=== PATIENT | female | born 1980 ===

== ENCOUNTER 2018-06-12 11:27 | Inpatient (IN) | payer OTHER ==
[2018-06-12 12:29] LABS: SQUAMOUS EPITHIAL 4 /hpf (0-5); URINE BACTERIA RARE (<OCC); URINE BILIRUBIN NEGATIVE (NEGATIVE); URINE BLOOD 3+ (NEGATIVE); URINE CLARITY Hazy (Clear); URINE COLOR Red (YELLOW); URINE GLUCOSE (UA) NORMAL (Normal); URINE LEUKOCYTE ESTERASE 2+ Leu/uL (Negative); URINE PROTEIN 2+ mg/dL (NEGATIVE); URINE UROBILINOGEN NORMAL mg/dL (0.2-1.0)
[2018-06-12 12:34] LABS: HCG,QUALITATIVE URINE NEGATIVE (NEGATIVE)
--- NOTE | 2018-06-12 12:58 | C.PDOC ---
History Of Present Illness <Delores Mendoza - Last Filed: 06/12/18 18:43> <Laney Pereztraci Pope - Last Filed: 06/12/18 19:21> 38 y/o female present to ED with c/o diffuse abdominal pain for 3 days associated with constipation. Patient states her last bowel was 3 days ago after taking dose of dulcolax given by PMD. Patient was sent to have outpatient ultrasound today but does not have results yet, states pain was severe 08/08 came to ED for evaluation. Patient denies fever, vomiting, diarrhea or any other complaints at this time. LMP now (Elissa Perez) <Delores Mendoza - Last Filed: 06/12/18 18:43> History Per: Patient History/Exam Limitations: no limitations Onset/Duration Of Symptoms: Days Current Symptoms Are (Timing): Still Present Location Of Pain/Discomfort: Diffuse <ChrisLaneyElissa Toshia - Last Filed: 06/12/18 19:21> Time Seen by Provider: 06/12/18 11:50 Chief Complaint (Nursing): Abdominal Pain Past Medical History Reviewed: Historical Data, Nursing Documentation, Vital Signs - Medical History PMH: No Chronic Diseases Surgical History: No Surg Hx Family History: States: No Known Family Hx - Social History Hx Alcohol Use: No Hx Substance Use: No - Immunization History Hx Tetanus Toxoid Vaccination: No Hx Influenza Vaccination: No Hx Pneumococcal Vaccination: No <ChrisLaneyElissa C - Last Filed: 06/12/18 19:21> Vital Signs: Last Vital Signs Temp 99.5 F 06/12/18 18:00 Pulse 82 06/12/18 18:00 Resp 18 06/12/18 18:00 BP 123/82 06/12/18 18:00 Pulse Ox 100 06/12/18 18:34 Review Of Systems Constitutional: Negative for: Fever, Chills Gastrointestinal: Positive for: Abdominal Pain, Constipation. Negative for: Nausea, Vomiting, Diarrhea, Hematochezia Skin: Negative for: Rash Neurological: Negative for: Weakness, Numbness <Elissa Perez - Last Filed: 06/12/18 19:21> Physical Exam - Physical Exam Appears: Non-toxic, No Acute Distress Skin: Warm, Dry, No Rash Head: Atraumatic, Normacephalic Eye(s): bilateral: Normal Inspection Oral Mucosa: Moist Neck: Normal ROM, Supple Cardiovascular: Rhythm Regular Respiratory: Normal Breath Sounds, No Rales, No Rhonchi, No Wheezing Gastrointestinal/Abdominal: Soft, No Tenderness, No Guarding, No Rebound Back: No CVA Tenderness Extremity: Normal ROM, Capillary Refill (<2 seconds) Neurological/Psych: Oriented x3, Normal Speech, Normal Cognition <Elissa Perez - Last Filed: 06/12/18 19:21> ED Course And Treatment - Laboratory Results Result Diagrams: 06/12/18 14:19 06/12/18 14:19 <Delores Mendoza - Last Filed: 06/12/18 18:43> - Laboratory Results Result Diagrams: 06/12/18 14:19 06/12/18 14:19 O2 Sat by Pulse Oximetry: 100 (RA) Pulse Ox Interpretation: Normal <Elissa Perez - Last Filed: 06/12/18 19:21> Progress <Delores Mendoza - Last Filed: 06/12/18 18:43> <Elissa Perez - Last Filed: 06/12/18 19:21> - Re-Evaluation Re-evaluation Note: 06/12/18 18:43 D/W DR LYNN AWARE OF ER FINDINGS, ADMIT TO HIS SERVICE TO Sara PERRY (Delores Mendoza) Critical Care Time - Critical Care Note Total Time (in mins): 35 Documented critical care: time excludes all time spent performing seperately billable procedures. <Elissa Perez - Last Filed: 06/12/18 19:21> - Critical Care Note Comments: see MDM (Elissa Perez) Medical Decision Making <Delores Mendoza - Last Filed: 06/12/18 18:43> <Elissa Perez - Last Filed: 06/12/18 19:21> Medical Decision Making: Patient has no abdominal tenderness, obstructive series ordered. Patient had enema and still no bowel movement. CT scan ordered to r/o obstruction. Blood cultures and Zosyn IV ordered. The case was discussed with Dr. Lynn who agrees to admit the patient. (Elissa Perez) Disposition <Delores Mendoza - Last Filed: 06/12/18 18:43> - Disposition Disposition Time: 18:34 <Elissa Perez - Last Filed: 06/12/18 19:21> - Disposition Disposition: HOSPITALIZED Condition: STABLE Forms: [facility] ([place]) - Clinical Impression Clinical Impression: Ruptured appendicitis <Delores Mendoza - Last Filed: 06/12/18 18:43> - PA / FASHION BUYER / Resident Statement MD/DO has reviewed & agrees with the documentation as recorded. - Scribe Statement The provider has reviewed the documentation as recorded by the Scribe <Elissa Perez - Last Filed: 06/12/18 19:21> - Scribe Statement Alex Peña All medical record entries made by the Scribe were at my direction and personally dictated by me. I have reviewed the chart and agree that the record accurately reflects my personal performance of the history, physical exam, medical decision making, and the department course for this patient. I have also personally directed, reviewed, and agree with the discharge instructions and disposition. (Elissa Perez)
--- NOTE | 2018-06-12 13:26 | RAD ---
Date of service: 06/12/2018 PROCEDURE: Radiographs of the chest and abdomen (obstructive series) HISTORY: constipation COMPARISON: No prior. TECHNIQUE: AP radiograph of the chest, with upright and supine radiographs of the abdomen. FINDINGS: CHEST: Lungs: Clear. Cardiovascular: Normal size heart. No pulmonary vascular congestion. Pleura: No pleural fluid. No pneumothorax. Other findings: None. ABDOMEN AND PELVIS: Bowel: There is gas seen within the splenic flexure an also apparently this left upper quadrant small bowel loops here is well. Few nonspecific air-fluid levels small bowel loops in left upper quadrant are noted. There is paucity of gas in the mid and distal small bowel and colonic loops. . No marked stool retention appreciated Free air: None. Bones: Unremarkable. Other findings: None. IMPRESSION: No pulmonary infiltrate. No free air. Nonspecific bowel gas pattern. No complete small bowel obstruction seen. A partial Renee 18 minutes intermittent proximal small bowel obstruction not excluded. An enteritis is also a consideration. Clinical correlation and follow-up is advised .
[2018-06-12] MEDS ORDERED: Iohexol 240 (50 ml) PO STA (14:04)
[2018-06-12 14:25] LABS: BASO # 0.1 K/uL (0.0-0.2); BASO % 0.5 % (0.0-2.0); EOS % 0.2 % (0.0-4.0); HEMOGLOBIN 12.8 g/dL (11.0-16.0); LYMPH # 1.6 K/uL (1.0-4.3); LYMPH % 11.8 % (20.0-40.0); MEAN CELL VOLUME 81.1 fL (81.0-99.0); MEAN CORPUSCULAR HGB CONC 33.3 g/dL (33.0-37.0); MEAN PLATELET VOLUME 8.6 fL (7.2-11.7); MONO # 1.1 K/uL (0.0-0.8); MONO % 8.7 % (0.0-10.0); NEUT # 10.4 K/uL (1.8-7.0); NEUT % 78.8 % (50.0-75.0); NRBC % 0.1 % (0.0-2.0); RBC 4.74 Mil/uL (3.80-5.20); RED CELL DISTRIBUTION WIDTH 15.4 % (11.5-14.5); WHITE BLOOD COUNT 13.2 K/uL (4.8-10.8)
[2018-06-12 14:36] LABS: ALB/GLOB RATIO 1.1 (1.0-2.1); ALBUMIN 4.5 g/dL (3.5-5.0); ALT/SGPT 44 U/L (9-52); AST/SGOT 30 U/L (14-36); BLOOD UREA NITROGEN 8 mg/dL (7-17); CALCIUM 9.6 mg/dl (8.6-10.4); GFR AFRICAN-AMERICAN > 60; GFR NON-AFRICAN AMERICAN > 60; LIPASE 57 U/L (23-300)
[2018-06-12] MEDS ORDERED: Iohexol 240 (50 ml) ONE (14:40)
[2018-06-12] MEDS ORDERED: Iodixanol 320 MG/ML 100 ML BOTTLE IV ONE (16:46)
--- NOTE | 2018-06-12 17:34 | CT ---
Date of service: 06/12/2018 PROCEDURE: CT Abdomen and Pelvis with contrast HISTORY: diffuse abd pain, obstipation, r/o obstruction COMPARISON: None. TECHNIQUE: Contrast dose: 100 mL Visipaque 320. Axial and reformatted coronal and sagittal CT images of the abdomen and pelvis were obtained after IV and oral contrast administration. Radiation dose: Total exam DLP = 636.93 mGy-cm. This CT exam was performed using one or more of the following dose reduction techniques: Automated exposure control, adjustment of the mA and/or kV according to patient size, and/or use of iterative reconstruction technique. FINDINGS: LOWER THORAX: Unremarkable. LIVER: Unremarkable. No gross lesion or ductal dilatation. GALLBLADDER AND BILE DUCTS: No evidence of acute cholecystitis or biliary obstruction. PANCREAS: No evidence of pancreatitis. The main pancreatic duct is not dilated. SPLEEN: Unremarkable. ADRENALS: Unremarkable. No mass. KIDNEYS AND URETERS: Unremarkable. No hydronephrosis. No solid mass. VASCULATURE: Unremarkable. No aortic aneurysm. BOWEL: Mildly dilated ascending transverse and descending colon contains fluid density stool. There is no evidence of high-grade bowel obstruction. There are air-fluid levels seen in the large bowel. APPENDIX: The appendix is not visualized. There is a phlegmon and inflammatory changes adjacent to the sigmoid may represent contained rupture appendicitis. Correlate clinically. There are adjacent mildly enlarged mesenteric lymph nodes at the right lower abdomen. PERITONEUM: Unremarkable. No free fluid. No free air. LYMPH NODES: Unremarkable. No enlarged lymph nodes. BLADDER: Unremarkable. REPRODUCTIVE: Unremarkable. BONES: No acute fracture. OTHER FINDINGS: None. IMPRESSION: No evidence of high-grade bowel obstruction. Mildly dilated large bowel loop contains fluid density stool and contains multiple air-fluid levels. Suspicious for phlegmon and inflammatory changes adjacent to the cecum may represent contained rupture appendicitis. Please correlate clinically. Adjacent mildly enlarged mesenteric lymph nodes at the right lower abdomen.
[2018-06-12] MEDS ORDERED: Piperacillin/Tazobact 3.375 gm 100 ML IV STA (18:33)
[2018-06-12] MEDS ORDERED: Sodium Chloride 0.9% 1,000 ML IV ONE (18:42)
[2018-06-12] MEDS ORDERED: Sodium Chloride 0.9% 250 ML IV ONE ×2 (18:42→19:14)
[2018-06-12 18:43] LABS: VENOUS BLOOD GAS PCO2 47 mmHg (40-60); VENOUS BLOOD GAS PO2 17 mm/Hg (30-55); VENOUS BLOOD PH 7.38 (7.32-7.43)
[2018-06-12] MEDS ORDERED: Sodium Chloride 0.9% 1,000 ML ONE (19:14)
[2018-06-12] MEDS ORDERED: Piperacillin/Tazobact 3.375 gm 100 ML IVPB ONE (19:19)
[2018-06-12] MEDS: Dextrose 5%/0.45% NS 1,000 ML IV SCH (21:05)
[2018-06-13] MEDS: metroNIDAZOLE IV 500 mg/100 ml 500 MG/100 ML BAG IVPB SCH ×4 (00:45→23:01)
[2018-06-13] MEDS: Dextrose 5%/0.45% NS 1,000 ML IV SCH ×4 (07:15→21:48)
[2018-06-13 07:58] LABS: BASO % 0.3 % (0.0-2.0); EOS % 0.3 % (0.0-4.0); HEMOGLOBIN 12.2 g/dL (11.0-16.0); LYMPH # 1.2 K/uL (1.0-4.3); LYMPH % 9.9 % (20.0-40.0); MEAN CELL VOLUME 81.3 fL (81.0-99.0); MEAN CORPUSCULAR HEMOGLOBIN 26.9 pg (27.0-31.0); MEAN CORPUSCULAR HGB CONC 33.1 g/dL (33.0-37.0); MEAN PLATELET VOLUME 8.6 fL (7.2-11.7); MONO % 8.6 % (0.0-10.0); NEUT # 9.5 K/uL (1.8-7.0); NEUT % 80.9 % (50.0-75.0); PLATELET COUNT 288 K/uL (130-400); RBC 4.52 Mil/uL (3.80-5.20); RED CELL DISTRIBUTION WIDTH 15.5 % (11.5-14.5); WHITE BLOOD COUNT 11.7 K/uL (4.8-10.8)
[2018-06-13 08:09] LABS: ALBUMIN 3.6 g/dL (3.5-5.0); ALT/SGPT 27 U/L (9-52); AST/SGOT 18 U/L (14-36); BLOOD UREA NITROGEN 6 mg/dL (7-17); CALCIUM 8.5 mg/dl (8.6-10.4); GFR AFRICAN-AMERICAN > 60; GFR NON-AFRICAN AMERICAN > 60
[2018-06-13 09:06] LABS: ANISOCYTOSIS SLIGHT; BANDS 3 % (0-2); LYMPHOCYTE 10 % (20-40); MONOCYTE 6 % (0-10); NEUTROPHIL 81 % (50-75); PLATELET ESTIMATE NORMAL (NORMAL); POIKILOCYTOSIS SLIGHT; TOTAL CELLS COUNTED 100
[2018-06-13] MEDS ORDERED: Propofol 10 mg/ml Inj (20 ML) ONE (12:42)
[2018-06-13] MEDS ORDERED: Midazolam 2 MG/2 ML VIAL ONE (12:42)
[2018-06-13 13:13] LABS: INR 1.3; PROTHROMBIN TIME 13.7 SECONDS (9.7-12.2)
[2018-06-13] MEDS ORDERED: Bacitracin Ointment 30 GM TUBE ONE (14:10)
[2018-06-13] MEDS ORDERED: Neostigmine Methylsulfate 3mg/3ml Syringe IV ONE (14:18)
[2018-06-13] MEDS ORDERED: Lactated Ringer's 1,000 ML IV SCH (14:30)
[2018-06-13] MEDS ORDERED: Dextrose 5%/0.45% NS 1,000 ML IV ONE (16:15)
--- NOTE | 2018-06-13 22:34 | OP ---
Copied To: Zane Beckman MD Attending MD: Zane Beckman MD PROCEDURE DATE: 06/13/2018 PREOPERATIVE DIAGNOSIS: Perforated appendicitis. POSTOPERATIVE DIAGNOSIS: Perforated appendicitis with intraperitoneal abscess. PROCEDURE PERFORMED: Laparotomy, appendectomy, drainage of intraperitoneal abscess, extensive lysis of adhesions with repair of serosal injuries of both the cecum and small bowel. SURGEON: Zane Beckman MD ANESTHESIA General endotracheal. BLOOD LOSS: 50 mL. POSTOPERATIVE CONDITION: Stable. INDICATIONS FOR SURGERY: This is a 38-year-old female who presents with a 3-day history of right lower quadrant pain and fever. CAT scan revealed a periappendiceal abscess perforation. She is taken to the OR now for open appendectomy. GROSS FINDINGS: There was a walled off abscess in the right lower quadrant. There was a cecal phlegmon containing appendix abscess and multiple adhesions of small and large bowel. The right lower quadrant incision had to be widened to gain exposure in order to complete the operation safely. DESCRIPTION OF PROCEDURE: The patient was taken to the operating room, general anesthesia was administered. The abdomen was prepped and draped. The abdomen was entered through a transverse muscle splitting incision in the lower quadrant. Phlegmon was found and it was felt that no more exposure would be needed to do the operation safely so the incision was extended medially and laterally, and the muscle layers were divided using the Bovie. Once the opening had been widened, the cecum was mobilized into the wound, and the phlegmon at the base of the cecum was carefully dissected free. The abscess cavity was entered and pus was drained and cultured. The appendix was meticulously dissected off its adhesions with removal of small and large bowel adhesions. Serosal tears were repaired with silk. The appendix had been carefully removed from its adherence to the cecal wall. The base space was divided using a TA-30 stapler. A bleeding right colic blood vessel was repaired. The wound was irrigated with 5 liters of warm saline solution after the bowel was carefully inspected and a rent in the cecal mesentery was repaired with chromic. The abdominal wall was closed in layers with #1 Monocryl. The subcutaneous tissue was flushed with Irrisept solution and closed loosely with Monocryl and skin clips. The patient tolerated the procedure well. Returned to recovery room in stable condition. Zane Beckman MD
--- NOTE | 2018-06-13 23:12 | CP.PCM.HP ---
Past Patient History - Past Medical History & Family History Past Medical History?: Yes - Past Social History Smoking Status: Never Smoked - MUSCULOSKELETAL/RHEUMATOLOGICAL Hx Falls: No - GASTROINTESTINAL Hx Gastrointestinal Disorders: Yes Hx Constipation: Yes - PSYCHIATRIC Hx Substance Use: No - SURGICAL HISTORY Hx Surgeries: Yes Hx Section: Yes - ANESTHESIA Hx Anesthesia: Yes Hx Anesthesia Reactions: No Meds Allergies/Adverse Reactions: Allergies Allergy/AdvReac Type Severity Reaction Status Date / Time No Known Allergies Allergy Verified 06/12/18 11:30 Results - Vital Signs Recent Vital Signs: Last Vital Signs Temp 97.6 F 06/13/18 16:30 Pulse 80 06/13/18 16:30 Resp 22 06/13/18 16:30 BP 97/52 L 06/13/18 16:30 Pulse Ox 100 06/13/18 16:30 - Labs Result Diagrams: 06/13/18 07:47 06/13/18 07:47 Labs: Laboratory Results - last 24 hr 06/13/18 06/13/18 06/13/18 07:47 07:47 12:23 WBC 11.7 H RBC 4.52 Hgb 12.2 Hct 36.8 MCV 81.3 MCH 26.9 L MCHC 33.1 RDW 15.5 H Plt Count 288 MPV 8.6 Neut % (Auto) 80.9 H Lymph % (Auto) 9.9 L [place] % (Auto) 8.6 Eos % (Auto) 0.3 Baso % (Auto) 0.3 Neut # (Auto) 9.5 H Lymph # (Auto) 1.2 [place] # (Auto) 1.0 H Eos # (Auto) 0.0 Baso # (Auto) 0.0 Neutrophils % (Manual) 81 H Band Neutrophils % 3 H Lymphocytes % (Manual) 10 L Monocytes % (Manual) 6 Platelet Estimate Normal Poikilocytosis (manual Slight Anisocytosis (manual) Slight PT 13.7 H INR 1.3 APTT 34 Sodium 142 Potassium 3.7 Chloride 105 Carbon Dioxide 28 Anion Gap 13 BUN 6 L Creatinine 0.6 L Est GFR ( Amer) > 60 Est GFR (Non-Af Amer) > 60 Random Glucose 124 H Calcium 8.5 L Total Bilirubin 0.5 AST 18 ALT 27 Alkaline Phosphatase 69 Total Protein 7.1 Albumin 3.6 Globulin 3.5 Albumin/Globulin Ratio 1.0
[2018-06-14] MEDS: Dextrose 5%/0.45% NS 1,000 ML IV SCH ×6 (06:09→23:48)
[2018-06-14] MEDS: metroNIDAZOLE IV 500 mg/100 ml 500 MG/100 ML BAG IVPB SCH ×3 (06:45→23:45)
--- NOTE | 2018-06-14 08:13 | PN ---
Copied To: Terrell Samayoa MD Attending MD: Terrell Samayoa MD DATE: 06/13/2018 CHIEF COMPLAINT: Right and left quadrant abdominal pain. SUBJECTIVE: This is 38-year-old female with no significant past medical history. Starting last Monday, she developed mild right lower quadrant pain. She was seen by her PMD. The patient was advised an ultrasound of the abdomen. The patient was advised to report in case if she does not improve. The patient's pain got worse in the next day. Then, it continued to get worse and on Monday morning, she came to emergency room. She was hospitalized here tiredness, generalized malaise, fatigue, and nausea. No vomiting. No fever. No diarrhea. No constipation. She denies any polyuria or polydipsia. She denies any dysuria, hematuria, or pyuria. She denies any diarrhea. She denies any rectal bleeding, hematemesis, . She denies any history of trauma or fall to the abdomen. ALLERGIES: UNKNOWN ALLERGIES. CURRENT MEDICATIONS: None. PAST MEDICAL HISTORY: Nothing significant. SOCIAL HISTORY: Nonsmoker, non EtOH abuser. PHYSICAL EXAMINATION: GENERAL: A young female, postop. She has a dressing in the right lower quadrant. She is in the bed. She denies any shortness of breath. VITAL SIGNS: Blood pressure 97/52, pulse 80, respiratory rate 22, and temperature 97.6. SKIN: Dry. HEENT: Atraumatic, normocephalic. Negative pallor. Negative jaundice. Extraocular movements are intact. NECK: Supple. No JVD. No lymph node. No thyromegaly. No carotid bruits. CHEST WALL: Bilateral symmetrical expansion. LUNGS: Bilaterally clear. No rales. No rhonchi. CARDIOVASCULAR SYSTEM: S1 and S2 regular. No thrills. . ABDOMEN: Soft and nontender. Bowel sounds positive. Unable to evaluate right lower quadrant dressing. RECTAL AND PELVIC: Unable to do because of the patient's positioning. EXTREMITIES: No clubbing, cyanosis, or edema. ASSESSMENT: 1. phlegmon in right lower quadrant due to ruptured appendix, status post surgery. 2. Dehydration. PLAN: Admit. Detailed orders written. Seen and examined. Terrell Samayoa MD [facility] # [id number]
--- NOTE | 2018-06-14 23:23 | CP.PCM.PN ---
Objective - Vital Signs/Intake and Output Vital Signs (last 24 hours): Temp Pulse Resp BP Pulse Ox 100.6 F H 90 18 121/73 98 06/14/18 21:17 06/14/18 21:15 06/14/18 21:15 06/14/18 21:15 06/14/18 21:15 Intake and Output: 06/14/18 06/15/18 18:59 06:59 Intake Total 1000 Output Total 30 Balance 970 - Medications Medications: Current Medications Acetaminophen (Tylenol 325mg Tab) 650 mg PO Q6 PRN PRN Reason: Fever >100.4 F Last Admin: 06/14/18 21:17 Dose: 650 mg Dextrose/Sodium Chloride (Dextrose 5%/0.45% Ns 1000 Ml) 1,000 mls @ 125 mls/hr IV .[facility]8H [facility] Last Admin: 06/14/18 20:21 Dose: Not Given Metronidazole (Flagyl) 500 mg in 100 mls @ 100 mls/hr IVPB Q8H ELIAZAR PRN Reason: Protocol Last Admin: 06/14/18 16:00 Dose: 100 mls/hr Ceftriaxone Sodium 1 gm/ (Sodium Chloride) 100 mls @ 100 mls/hr IVPB Q24H ELIAZAR PRN Reason: Protocol Last Admin: 06/14/18 00:17 Dose: 100 mls/hr Morphine Sulfate (Morphine) 2 mg IVP Q4 PRN PRN Reason: Pain, moderate (4-7) Last Admin: 06/14/18 22:20 Dose: 2 mg Ondansetron HCl (Zofran Inj) 4 mg IVP Q6 PRN PRN Reason: Nausea/Vomiting - Labs Labs: 06/13/18 07:47 06/13/18 07:47 PT 13.7 SECONDS (9.7-12.2) H 06/13/18 12:23 INR 1.3 06/13/18 12:23 APTT 34 SECONDS (21-34) 06/13/18 12:23
[2018-06-15] MEDS: Dextrose 5%/0.45% NS 1,000 ML IV SCH (03:54)
--- NOTE | 2018-06-15 05:26 | PN ---
Copied To: Terrell Samayoa MD Attending MD: Terrell Samayoa MD DATE: 06/14/2018 SUBJECTIVE: The patient has low-grade fever. She feels better. She is on diet. No nausea or vomiting. PHYSICAL EXAMINATION: VITAL SIGNS: Blood pressure 121/73, pulse 90, respiratory rate 18, and temperature 100.8. LUNGS: Clear. CVS: S1 and S2 regular. ABDOMEN: Soft. ASSESSMENT: 1. Status post incision and drainage of right appendicular phlegmon. 2. Dehydration. PLAN: Continue postop care. Monitor the patient. Terrell Samayoa MD
[2018-06-15 06:49] LABS: BASO % 0.3 % (0.0-2.0); EOS # 0.1 K/uL (0.0-0.7); EOS % 0.8 % (0.0-4.0); HEMOGLOBIN 10.2 g/dL (11.0-16.0); LYMPH # 0.7 K/uL (1.0-4.3); MEAN CELL VOLUME 81.2 fL (81.0-99.0); MEAN CORPUSCULAR HEMOGLOBIN 26.7 pg (27.0-31.0); MEAN CORPUSCULAR HGB CONC 32.9 g/dL (33.0-37.0); MEAN PLATELET VOLUME 7.8 fL (7.2-11.7); MONO # 0.9 K/uL (0.0-0.8); MONO % 10.8 % (0.0-10.0); NEUT # 6.5 K/uL (1.8-7.0); NEUT % 79.1 % (50.0-75.0); PLATELET COUNT 273 K/uL (130-400); RBC 3.81 Mil/uL (3.80-5.20); RED CELL DISTRIBUTION WIDTH 15.4 % (11.5-14.5); WHITE BLOOD COUNT 8.3 K/uL (4.8-10.8)
[2018-06-15] MEDS: metroNIDAZOLE IV 500 mg/100 ml 500 MG/100 ML BAG IVPB SCH ×3 (06:51→23:45)
[2018-06-15 08:06] LABS: BLOOD UREA NITROGEN 4 mg/dL (7-17); CALCIUM 7.9 mg/dl (8.6-10.4); GFR AFRICAN-AMERICAN > 60; GFR NON-AFRICAN AMERICAN > 60
[2018-06-15 08:27] LABS: ANISOCYTOSIS SLIGHT; BANDS 7 % (0-2); BASOPHIL 1 % (0-2); HYPOCHROMIC SLIGHT; LYMPHOCYTE 8 % (20-40); MONOCYTE 11 % (0-10); NEUTROPHIL 73 % (50-75); PLATELET ESTIMATE NORMAL (NORMAL); POIKILOCYTOSIS SLIGHT; POLYCHROMIC SLIGHT; TOTAL CELLS COUNTED 100
--- NOTE | 2018-06-15 23:21 | CP.PCM.PN ---
Objective - Vital Signs/Intake and Output Vital Signs (last 24 hours): Temp Pulse Resp BP Pulse Ox 98.1 F 96 H 20 118/79 98 06/15/18 15:00 06/15/18 15:00 06/15/18 15:00 06/15/18 15:00 06/15/18 15:00 - Medications Medications: Current Medications Acetaminophen (Tylenol 325mg Tab) 650 mg PO Q6 PRN PRN Reason: Fever >100.4 F Last Admin: 06/14/18 21:17 Dose: 650 mg Metronidazole (Flagyl) 500 mg in 100 mls @ 100 mls/hr IVPB Q8H ELIAZAR PRN Reason: Protocol Last Admin: 06/15/18 17:51 Dose: 100 mls/hr Ceftriaxone Sodium 1 gm/ (Sodium Chloride) 100 mls @ 100 mls/hr IVPB Q24H ELIAZAR PRN Reason: Protocol Last Admin: 06/14/18 23:46 Dose: 100 mls/hr Morphine Sulfate (Morphine) 2 mg IVP Q4 PRN PRN Reason: Pain, moderate (4-7) Last Admin: 06/15/18 16:28 Dose: 2 mg Ondansetron HCl (Zofran Inj) 4 mg IVP Q6 PRN PRN Reason: Nausea/Vomiting - Labs Labs: 06/15/18 06:45 06/15/18 06:45 PT 13.7 SECONDS (9.7-12.2) H 06/13/18 12:23 INR 1.3 06/13/18 12:23 APTT 34 SECONDS (21-34) 06/13/18 12:23
[2018-06-16 04:35] VITALS: O2SAT 98
--- NOTE | 2018-06-16 05:03 | PN ---
Copied To: Terrell Samayoa MD Attending MD: Terrell Samayoa MD DATE: 06/15/2018 SUBJECTIVE: The patient is feeling better, afebrile. No shortness of breath. No nausea or vomiting. She is tolerating diet. PHYSICAL EXAMINATION: VITAL SIGNS: Blood pressure 100/70, pulse 80, respiratory rate 15, and temperature 98.2. LUNGS: Clear. No rales. No rhonchi. CVS: S1 and S2 regular. ABDOMEN: Soft. ASSESSMENT: 1. Phlegmon appendicular abscess, status post surgery. 2. Dehydration. PLAN: Continue postop care. Monitor the patient. Terrell Samayoa MD
[2018-06-16 08:02] VITALS: BP 124/86; PULSE 87; RESP 18; TEMP 99.6
--- NOTE | 2018-06-16 21:56 | CP.PCM.DIS ---
Provider - Provider Date of Admission: 06/12/18 18:57 Attending physician: Terrell Samayoa MD Hospital Course - Lab Results Lab Results: Micro Results 06/12/18 14:58 Blood Blood Culture - Preliminary NO GROWTH AFTER 3 DAYS 06/12/18 14:58 Blood Blood Culture - Preliminary NO GROWTH AFTER 3 DAYS 06/13/18 13:59 Abdomen Gram Stain - Final 06/13/18 13:59 Abdomen Wound Culture - Preliminary No growth. 06/13/18 17:01 Abdomen Gram Stain - Final 06/13/18 17:01 Abdomen Wound Culture - Preliminary No growth. Most Recent Lab Values WBC 8.3 K/uL (4.8-10.8) 06/15/18 06:45 RBC 3.81 Mil/uL (3.80-5.20) 06/15/18 06:45 Hgb 10.2 g/dL (11.0-16.0) L D 06/15/18 06:45 Hct 31.0 % (34.0-47.0) L 06/15/18 06:45 MCV 81.2 fL (81.0-99.0) 06/15/18 06:45 MCH 26.7 pg (27.0-31.0) L 06/15/18 06:45 MCHC 32.9 g/dL (33.0-37.0) L 06/15/18 06:45 RDW 15.4 % (11.5-14.5) H 06/15/18 06:45 Plt Count 273 K/uL (130-400) 06/15/18 06:45 MPV 7.8 fL (7.2-11.7) 06/15/18 06:45 Neut % (Auto) 79.1 % (50.0-75.0) H 06/15/18 06:45 Lymph % (Auto) 9.0 % (20.0-40.0) L 06/15/18 06:45 [place] % (Auto) 10.8 % (0.0-10.0) H 06/15/18 06:45 Eos % (Auto) 0.8 % (0.0-4.0) 06/15/18 06:45 Baso % (Auto) 0.3 % (0.0-2.0) 06/15/18 06:45 Neut # (Auto) 6.5 K/uL (1.8-7.0) 06/15/18 06:45 Lymph # (Auto) 0.7 K/uL (1.0-4.3) L 06/15/18 06:45 [place] # (Auto) 0.9 K/uL (0.0-0.8) H 06/15/18 06:45 Eos # (Auto) 0.1 K/uL (0.0-0.7) 06/15/18 06:45 Baso # (Auto) 0.0 K/uL (0.0-0.2) 06/15/18 06:45 Neutrophils % (Manual) 73 % (50-75) 06/15/18 06:45 Band Neutrophils % 7 % (0-2) H 06/15/18 06:45 Lymphocytes % (Manual) 8 % (20-40) L 06/15/18 06:45 Monocytes % (Manual) 11 % (0-10) H 06/15/18 06:45 Basophils % (Manual) 1 % (0-2) 06/15/18 06:45 Platelet Estimate Normal (NORMAL) 06/15/18 06:45 Polychromasia Slight 06/15/18 06:45 Hypochromasia (manual) Slight 06/15/18 06:45 Poikilocytosis (manual Slight 06/15/18 06:45 Anisocytosis (manual) Slight 06/15/18 06:45 PT 13.7 SECONDS (9.7-12.2) H 06/13/18 12:23 INR 1.3 06/13/18 12:23 APTT 34 SECONDS (21-34) 06/13/18 12:23 pO2 17 mm/Hg (30-55) L 06/12/18 18:39 VBG pH 7.38 (7.32-7.43) 06/12/18 18:39 VBG pCO2 47 mmHg (40-60) 06/12/18 18:39 VBG HCO3 24.5 mmol/L 06/12/18 18:39 VBG Total CO2 29.2 mmol/L (22-28) H 18 18:39 VBG O2 Sat (Calc) 30.9 % (40-65) L 06/12/18 18:39 VBG Base Excess 2.0 mmol/L (0.0-2.0) 06/12/18 18:39 VBG Potassium 3.7 mmol/L (3.6-5.2) 06/12/18 18:39 Sodium 136.0 mmol/l (132-148) 06/12/18 18:39 Chloride 101.0 mmol/L (98-107) 06/12/18 18:39 Glucose 98 mg/dl (65-105) 06/12/18 18:39 Lactate 1.1 mmol/L (0.7-2.1) 06/12/18 18:39 Sodium 139 mmol/L (132-148) 06/15/18 06:45 Potassium 3.9 mmol/L (3.6-5.2) 06/15/18 06:45 Chloride 107 mmol/L (98-107) 06/15/18 06:45 Carbon Dioxide 26 mmol/L (22-30) 06/15/18 06:45 Anion Gap 10 (10-20) 06/15/18 06:45 BUN 4 mg/dL (7-17) L 06/15/18 06:45 Creatinine 0.5 mg/dL (0.7-1.2) L 06/15/18 06:45 Est GFR ( Amer) > 60 06/15/18 06:45 Est GFR (Non-Af Amer) > 60 06/15/18 06:45 Random Glucose 120 mg/dL (65-105) H 06/15/18 06:45 Calcium 7.9 mg/dl (8.6-10.4) L 06/15/18 06:45 Total Bilirubin 0.5 mg/dL (0.2-1.3) 06/13/18 07:47 AST 18 U/L (14-36) 06/13/18 07:47 ALT 27 U/L (9-52) 06/13/18 07:47 Alkaline Phosphatase 69 U/L (38-126) 06/13/18 07:47 Total Protein 7.1 g/dL (6.3-8.3) 06/13/18 07:47 Albumin 3.6 g/dL (3.5-5.0) 06/13/18 07:47 Globulin 3.5 gm/dL (2.2-3.9) 08/15/18 07:47 Albumin/Globulin Ratio 1.0 (1.0-2.1) 06/13/18 07:47 Lipase 57 U/L (23-300) 06/12/18 14:19 Venous Blood Potassium 3.7 mmol/L (3.6-5.2) 06/12/18 18:39 Urine Color Red (YELLOW) 06/12/18 12:03 Urine Clarity Hazy (Clear) 06/12/18 12:03 Urine pH 7.0 (5.0-8.0) 06/12/18 12:03 Ur Specific [place] 1.012 (1.003-1.030) 06/12/18 12:03 Urine Protein 2+ mg/dL (NEGATIVE) H 06/12/18 12:03 Urine Glucose (UA) Normal mg/dL (Normal) 06/12/18 12:03 Urine Ketones Negative mg/dL (NEGATIVE) 06/12/18 12:03 Urine Blood 3+ (NEGATIVE) H 06/12/18 12:03 Urine Nitrate Negative (NEGATIVE) 06/12/18 12:03 Urine Bilirubin Negative (NEGATIVE) 06/12/18 12:03 Urine Urobilinogen Normal mg/dL (0.2-1.0) 06/12/18 12:03 Ur Leukocyte Esterase 2+ [place]/uL (Negative) H 06/12/18 12:03 Urine WBC (Auto) 389 /hpf (0-5) H 06/12/18 12:03 Urine RBC (Auto) 1516 /hpf (0-3) H 06/12/18 12:03 Ur Squamous Epith Cells 4 /hpf (0-5) 06/12/18 12:03 Urine Bacteria Rare (<OCC) 06/12/18 12:03 Urine HCG, Qual Negative (NEGATIVE) 06/12/18 12:03 Discharge Plan - Follow Up Plan Condition: STABLE Disposition: HOME/ ROUTINE Instructions: Ciprofloxacin (Systemic), Appendicitis, Adult (DC), Appendectomy , Open Surgery (DC), Managing Pain After Surgery Additional Instructions: Tylenol/Advil for pain Cipro antibiotic may shower daily leave wound uncovered Light activity Resume preop diet; MOM for constipation Referrals: Terrell Samayoa MD [Staff Provider] - aZne Beckman MD [Staff Provider] -
--- NOTE | 2018-06-17 21:35 | DS ---
Copied To: Terrell Samayoa MD Attending MD: Terrell Samayoa MD ADMITTING DIAGNOSIS: Phlegmon, right lower quadrant. DISCHARGE DIAGNOSES: Perforated appendicular abscess, dehydration, hypokalemia. HISTORY OF PRESENT ILLNESS: This is a 38-year-old female who has right lower quadrant pain, found to have phlegmon. She underwent surgery and the patient did well postoperatively and she is being discharged with outpatient followup. PHYSICAL EXAMINATION: VITAL SIGNS: Blood pressure 124/86, pulse 87, respiratory rate 18, temperature 99.6. LUNGS: Clear. CARDIOVASCULAR SYSTEM: S1, S2 regular. ABDOMEN: Soft. LABORATORY DATA: WBC 8.3, hemoglobin 10.2, hematocrit 31, platelets 273. Sodium 131, potassium 3.9, chloride 107, bicarb 26, BUN 4, creatinine 0.5. CONDITION UPON DISCHARGE: Stable. Terrell Samayoa MD
== END 2018-06-16 11:15 | disposition home or self-care (01) | DRG 331 ==
LOC: C.ER 11:27 → C.9E 18:57 → C.6T 20:11
PROVIDERS: ADMIT Internal Medicine; ATTEND Internal Medicine
PROC: 0DQH0ZZ Repair Cecum, Open Approach (ICD-10-PCS; 2018-06-13)
PROC: 0DTJ0ZZ Resection of Appendix, Open Approach (ICD-10-PCS; 2018-06-13)
PROC: 0DQ80ZZ Repair Small Intestine, Open Approach (ICD-10-PCS; 2018-06-13)
PROC: 0DNW0ZZ Release Peritoneum, Open Approach (ICD-10-PCS; principal; 2018-06-13 11:30)
DX: K35.3 Acute appendicitis with localized peritonitis (principal); K66.0 Peritoneal adhesions (postprocedural) (postinfection); K59.00 Constipation, unspecified; E87.6 Hypokalemia; E86.0 Dehydration; Z98.891 History of uterine scar from previous surgery